=== PATIENT | male | born 1990 | race African-American/Black ===

== ENCOUNTER 2021-04-17 16:33 | Emergency (ER) | payer OTHER ==
[~2021-04-17] VITALS: Ht 182.9 cm; Wt 86.2 kg
[2021-04-17 16:38] VITALS: BP 135/78; TEMP 98.8
== END 2021-04-17 18:01 | disposition home or self-care (01) ==
LOC: ED 16:33
DX: L03.115 Cellulitis of right lower limb (principal)
CPT/HCPCS: 90471; 90715; 96372; 99283; J0696; J1885